=== PATIENT | female | born 1940 | race Caucasian/White ===

== ENCOUNTER 2017-03-06 20:19 | Inpatient (IN) ==
[2017-03-06] MEDS ORDERED: ALBUTEROL/IPRATROPIUM 3 ML NEB RESP TX STA ×2 (20:29→21:10)
[2017-03-06] MEDS ORDERED: methylPREDNISolone SOD SUC 125 MG/2 ML VIAL IV STA (21:09)
[2017-03-06 22:04] LABS: Basophils # 0.1 10*3/uL (0.0-0.2); Basophils % 0.4 % (0.0-0.8); Eosinophils # 0.2 10*3/uL (0.0-0.87); Hematocrit 39.7 VOL% (35.7-47.0); Hemoglobin 13.1 GM/DL (12.0-16.0); Immature Granulocytes % 0.5 %; Immature Granulocytes Absolute 0.08 #; Lymphocytes # 0.8 10*3/uL (1.4-4.0); Lymphocytes % 4.6 % (21.3-54.2); Mean Corpuscular Hemoglobin 28 PG (27-34); Mean Corpuscular Volume 84.5 FL (87-102); Mean Platelet Volume 10.9 FL (9.6-12.0); Monocytes % 6.4 % (1.7-12.7); Neutrophils # 14.1 10*3/uL (1.4-7.4); Neutrophils % 87.1 % (38.7-73.9); Platelet Count 263 T/CUMM (130-400); Red Cell Distribution Width 13.2 % (9.3-17.3); White Blood Count 16.2 T/CUMM (4-12)
[2017-03-06 22:08] LABS: VBG Base Excess 0.1 MEQ/L (0-4); VBG HCO3 24.5 MEQ/L (24-28); VBG Oxygen Saturation 99.7 %; VBG PCO2 39.8 MMHG (41-51); VBG PH 7.401
[2017-03-06 22:25] LABS: Eosinophils 1 % (0-10); Lymphocytes 4 % (20-55); Segmented Neutrophils 89 % (50-85); Total Cells Counted 100
[2017-03-06 22:26] LABS: Platelet Estimate Adequate
[2017-03-06 22:28] LABS: Albumin 3.3 G/DL (3.4-5.0); Osmolality,Calculated 278.7 MOS/KG (273-304); Potassium 3.7 MMOL/L (3.5-5.1); Total Protein 6.8 G/DL (6.4-8.3)
[2017-03-06] MEDS ORDERED: cefTRIAXone 1,000 MG in SODIUM CHLORIDE 0.9% 100 ML IV STA (22:47)
[2017-03-06] MEDS ORDERED: AZITHROMYCIN INJ 500 MG in SODIUM CHLORIDE 0.9% 250 ML IV STA (22:48)
[2017-03-06] MEDS ORDERED: cefTRIAXone 1,000 MG VIAL ONE (23:38)
[2017-03-06] MEDS ORDERED: LEVOFLOXACIN INJ 100 ML IV ONE (23:49)
[2017-03-06] MEDS ORDERED: methylPREDNISolone SOD SUC 125 MG/2 ML VIAL ONE (23:59)
[2017-03-07] MEDS ORDERED: LEVOFLOXACIN INJ 500 MG in PREMIX 1 EACH IV STA (00:14)
[2017-03-07] MEDS ORDERED: DEXTROSE 50% 25 GM/50 ML VIAL IV PRN (00:15)
[2017-03-07] MEDS ORDERED: ACETAMINOPHEN 325 MG TABLET PO PRN (00:15)
[2017-03-07] MEDS ORDERED: ALBUTEROL 2.5 MG/3 ML NEB RESP TX PRN (00:15)
[2017-03-07] MEDS ORDERED: GLUCAGON 1 MG VIAL IM PRN (00:15)
[2017-03-07] MEDS: ALBUTEROL/IPRATROPIUM 3 ML NEB RESP TX SCH ×4 (01:25→20:07)
[2017-03-07] MEDS: SERTRALINE 25 MG TABLET PO SCH ×2 (02:02→20:39)
[2017-03-07] MEDS: ATORVASTATIN 40 MG TABLET PO SCH ×2 (02:02→20:39)
[2017-03-07] MEDS: DONEPEZIL 10 MG TABLET PO SCH ×2 (02:02→20:39)
[2017-03-07] MEDS: MIRTAZAPINE 15 MG TABLET PO SCH ×2 (02:03→20:39)
[2017-03-07 06:55] LABS: Basophils % 0.2 % (0.0-0.8); Eosinophils % 0.1 % (0.00-10.9); Hematocrit 37.6 VOL% (35.7-47.0); Hemoglobin 12.4 GM/DL (12.0-16.0); Immature Granulocytes % 0.5 %; Immature Granulocytes Absolute 0.06 #; Lymphocytes # 0.3 10*3/uL (1.4-4.0); Lymphocytes % 2.1 % (21.3-54.2); Mean Corpuscular Hemoglobin 28 PG (27-34); Mean Corpuscular Volume 84.1 FL (87-102); Mean Platelet Volume 12.2 FL (9.6-12.0); Monocytes # 0.1 10*3/uL (0.11-0.8); Monocytes % 1.1 % (1.7-12.7); Neutrophils # 12.3 10*3/uL (1.4-7.4); Platelet Count 170 T/CUMM (130-400); Red Blood Count 4.47 MC/CUMM (3.8-5.5); Red Cell Distribution Width 13.1 % (9.3-17.3); White Blood Count 12.8 T/CUMM (4-12)
[2017-03-07 07:11] LABS: Osmolality,Calculated 285.5 MOS/KG (273-304); Potassium 3.9 MMOL/L (3.5-5.1)
[2017-03-07 07:25] LABS: Band Neutrophils 1 % (0-10); Giant Platelets Few; Hypochromasia Slight; Lymphocytes 2 % (20-55); Ovalocytes Slight; Platelet Estimate Normal; Segmented Neutrophils 97 % (50-85); Total Cells Counted 100
[2017-03-07] MEDS: predniSONE 20 MG TABLET PO SCH (08:50)
[2017-03-07] MEDS: FERROUS SULFATE 325 MG TABLET PO SCH (08:50)
[2017-03-07] MEDS: LOSARTAN 50 MG TABLET PO SCH (08:50)
[2017-03-07] MEDS: METOPROLOL TARTRATE 25 MG TABLET PO SCH ×2 (08:50→20:41)
[2017-03-07] MEDS: INSULIN REGULAR 100 UNIT/ML SUBCUT SCH ×4 (08:50→20:39)
[2017-03-07] MEDS: hydroCHLOROthiazide 12.5 MG CAPSULE PO SCH (08:50)
[2017-03-07] MEDS: PANTOPRAZOLE 40 MG TABLET PO SCH (08:51)
[2017-03-07] MEDS: ENOXAPARIN 40 MG/0.4 ML SYRINGE SUBCUT SCH (08:51)
[2017-03-08] MEDS: ALBUTEROL/IPRATROPIUM 3 ML NEB RESP TX SCH ×5 (00:32→23:59)
[2017-03-08] MEDS: LEVOFLOXACIN INJ 500 MG in PREMIX 1 EACH IV SCH (02:16)
[2017-03-08] MEDS: ENOXAPARIN 40 MG/0.4 ML SYRINGE SUBCUT SCH ×2 (09:15→09:17)
[2017-03-08] MEDS: INSULIN REGULAR 100 UNIT/ML SUBCUT SCH ×4 (09:16→21:22)
[2017-03-08] MEDS: PANTOPRAZOLE 40 MG TABLET PO SCH (09:16)
[2017-03-08] MEDS: FERROUS SULFATE 325 MG TABLET PO SCH (09:16)
[2017-03-08] MEDS: LOSARTAN 50 MG TABLET PO SCH (09:16)
[2017-03-08] MEDS: METOPROLOL TARTRATE 25 MG TABLET PO SCH ×2 (09:16→21:22)
[2017-03-08] MEDS: predniSONE 20 MG TABLET PO SCH (09:16)
[2017-03-08] MEDS: hydroCHLOROthiazide 12.5 MG CAPSULE PO SCH (09:16)
[2017-03-08 17:29] LABS: Free T4 (Free Thyroxine) 1.62 NG/DL (0.76-1.46); Thyroid Stimulating Hormone 0.348 uIU/ml (0.358-3.74)
[2017-03-08] MEDS ORDERED: INSULIN GLARGINE 100 UNIT/ML SUBCUT SCH (21:00)
[2017-03-08] MEDS: DONEPEZIL 10 MG TABLET PO SCH (21:21)
[2017-03-08] MEDS: ATORVASTATIN 40 MG TABLET PO SCH (21:22)
[2017-03-08] MEDS: MIRTAZAPINE 15 MG TABLET PO SCH (21:22)
[2017-03-08] MEDS: SERTRALINE 25 MG TABLET PO SCH (21:22)
[2017-03-09 01:24] LABS: Apearance,Urine CLEAR (Clear); Bilirubin,Urine Negative (Negative); Blood, Urine Negative (Negative); Glucose,Urine (UA) Negative (Negative); Ketones,Urine Negative (Negative); Mucus,Urine Occasional /LPF (Occasional); Nitrite,Urine Negative (Negative); Protein,Urine Negative; RBC,Urine <1 /HPF (0-4); Urine Color Yellow (Yellow); Urine Specific Gravity 1.011 (1.001-1.035); Urine Urobilinogen < 2.0 EU/DL (0.2-1.0); WBC,Urine 1 /HPF (0-6)
[2017-03-09] MEDS: LEVOFLOXACIN INJ 500 MG in PREMIX 1 EACH IV SCH (02:05)
[2017-03-09 06:23] LABS: Basophils % 0.1 % (0.0-0.8); Eosinophils # 0.1 10*3/uL (0.0-0.87); Eosinophils % 0.7 % (0.00-10.9); Hematocrit 33.5 VOL% (35.7-47.0); Immature Granulocytes % 0.4 %; Immature Granulocytes Absolute 0.04 #; Lymphocytes % 10.8 % (21.3-54.2); Mean Corpuscular HGB Conc 32.8 GM/DL (32-36); Mean Corpuscular Hemoglobin 28 PG (27-34); Mean Corpuscular Volume 83.8 FL (87-102); Mean Platelet Volume 11.1 FL (9.6-12.0); Monocytes # 0.5 10*3/uL (0.11-0.8); Monocytes % 5.8 % (1.7-12.7); Neutrophils # 7.7 10*3/uL (1.4-7.4); Neutrophils % 82.2 % (38.7-73.9); Platelet Count 289 T/CUMM (130-400); Red Cell Distribution Width 13.1 % (9.3-17.3); White Blood Count 9.4 T/CUMM (4-12)
[2017-03-09 06:58] LABS: Calcium 8.2 MG/DL (8.5-10.1); Magnesium 2.5 MG/DL (1.8-2.4); Osmolality,Calculated 288.3 MOS/KG (273-304); Potassium 3.5 MMOL/L (3.5-5.1); Risk Ratio 3.46; VLDL CHOLESTEROL 22.6 MG/DL
[2017-03-09] MEDS: ALBUTEROL/IPRATROPIUM 3 ML NEB RESP TX SCH (07:47)
[2017-03-09 08:29] VITALS: BP 127/55
[2017-03-09] MEDS: INSULIN REGULAR 100 UNIT/ML SUBCUT SCH (09:09)
[2017-03-09] MEDS: PANTOPRAZOLE 40 MG TABLET PO SCH (09:09)
[2017-03-09] MEDS: METOPROLOL TARTRATE 25 MG TABLET PO SCH (09:10)
[2017-03-09] MEDS: FERROUS SULFATE 325 MG TABLET PO SCH (09:10)
[2017-03-09] MEDS: predniSONE 20 MG TABLET PO SCH (09:10)
[2017-03-09] MEDS: LOSARTAN 50 MG TABLET PO SCH (09:10)
[2017-03-09] MEDS: ENOXAPARIN 40 MG/0.4 ML SYRINGE SUBCUT SCH (09:10)
[2017-03-09] MEDS: hydroCHLOROthiazide 12.5 MG CAPSULE PO SCH (09:10)
== END 2017-03-09 11:31 | disposition home or self-care (01) | DRG 190 ==
LOC: N.ED 20:19 → N.EDINP 03-07 00:17 → N.5E 03-07 00:52
PROVIDERS: ADMIT Internal Medicine; ATTEND Internal Medicine

== ENCOUNTER 2017-05-16 18:37 | Inpatient (IN) ==
[2017-05-16] MEDS ORDERED: methylPREDNISolone SOD SUC 125 MG/2 ML VIAL IV STA (19:17)
[2017-05-16] MEDS ORDERED: ALBUTEROL/IPRATROPIUM 3 ML NEB RESP TX STA (19:17)
[2017-05-16] MEDS ORDERED: AZITHROMYCIN INJ 500 MG in SODIUM CHLORIDE 0.9% 250 ML IV STA (19:17)
[2017-05-16] MEDS ORDERED: cefTRIAXone 1,000 MG in SODIUM CHLORIDE 0.9% 100 ML IV STA (19:17)
[2017-05-16 19:22] LABS: Basophils # 0.1 10*3/uL (0.0-0.2); Basophils % 0.5 % (0.0-0.8); Eosinophils # 0.1 10*3/uL (0.0-0.87); Eosinophils % 0.3 % (0.00-10.9); Hematocrit 39.4 VOL% (35.7-47.0); Hemoglobin 12.4 GM/DL (12.0-16.0); Immature Granulocytes % 0.6 %; Immature Granulocytes Absolute 0.09 #; Lymphocytes # 1.1 10*3/uL (1.4-4.0); Lymphocytes % 7.3 % (21.3-54.2); Mean Corpuscular HGB Conc 31.5 GM/DL (32-36); Mean Corpuscular Hemoglobin 26 PG (27-34); Mean Corpuscular Volume 81.4 FL (87-102); Mean Platelet Volume 11.6 FL (9.6-12.0); Monocytes # 0.7 10*3/uL (0.11-0.8); Neutrophils # 12.3 10*3/uL (1.4-7.4); Neutrophils % 86.3 % (38.7-73.9); Platelet Count 341 T/CUMM (130-400); Red Blood Count 4.84 MC/CUMM (3.8-5.5); Red Cell Distribution Width 13.8 % (9.3-17.3); White Blood Count 14.3 T/CUMM (4-12)
[2017-05-16] MEDS ORDERED: cefTRIAXone 1,000 MG VIAL ONE (19:33)
[2017-05-16] MEDS ORDERED: methylPREDNISolone SOD SUC 125 MG/2 ML VIAL ONE (19:33)
[2017-05-16] MEDS ORDERED: AZITHROMYCIN 500 MG VIAL IV ONE (19:33)
[2017-05-16 19:53] LABS: Alanine Aminotransferase 17 U/L (13-56); Albumin 3.4 G/DL (3.4-5.0); Alkaline Phosphatase 114 U/L (45-117); Aspartate Amino Transferase 21 U/L (0-37); Blood Urea Nitrogen 13 MG/DL (7-18); Glucose 134 MG/DL (74-106); Osmolality,Calculated 282.3 MOS/KG (273-304); Potassium 3.3 MMOL/L (3.5-5.1); Sodium 141 MMOL/L (136-145); Total Protein 6.3 G/DL (6.4-8.3); Troponin I Only < 0.015 NG/ML (0.00-0.045)
[2017-05-16] MEDS ORDERED: ONDANSETRON 4 MG/2 ML VIAL IV PRN (20:50)
[2017-05-16] MEDS ORDERED: ACETAMINOPHEN 325 MG TABLET PO PRN (20:50)
[2017-05-16] MEDS ORDERED: GLUCAGON 1 MG VIAL IM PRN (20:50)
[2017-05-16] MEDS ORDERED: DEXTROSE 50% 25 GM/50 ML VIAL IV PRN (20:50)
[2017-05-16] MEDS: SODIUM CHLORIDE 0.45% 1,000 ML IV SCH (22:56)
[2017-05-16] MEDS: metFORMIN 500 MG TABLET PO SCH (22:56)
[2017-05-16] MEDS: ENOXAPARIN 40 MG/0.4 ML SYRINGE SUBCUT SCH (22:57)
[2017-05-16] MEDS: ATORVASTATIN 40 MG TABLET PO SCH (22:57)
[2017-05-16] MEDS: METOPROLOL TARTRATE 25 MG TABLET PO SCH (22:57)
[2017-05-16] MEDS: INSULIN LISPRO 100 UNIT/ML SUBCUT SCH (22:57)
[2017-05-16] MEDS: DONEPEZIL 10 MG TABLET PO SCH (22:57)
[2017-05-17 00:02] LABS: Apearance,Urine Slightly Hazy (Clear); Bilirubin,Urine Negative (Negative); Blood, Urine Small mg/dL (Negative); Glucose,Urine (UA) Negative (Negative); Ketones,Urine 5 mg/dL (Negative); Mucus,Urine Many /LPF (Occasional); Nitrite,Urine Negative (Negative); Protein,Urine 100 MG/DL; RBC,Urine 28 /HPF (0-4); Squamous Epithelial Cell,Urine Occasional /HPF (0-10); Urine Color Amber (Yellow); Urine Specific Gravity 1.024 (1.001-1.035); Urine Urobilinogen < 2.0 EU/DL (0.2-1.0); WBC,Urine 14 /HPF (0-6)
[2017-05-17] MEDS: ALBUTEROL/IPRATROPIUM 3 ML NEB RESP TX SCH ×6 (00:07→20:46)
[2017-05-17] MEDS: methylPREDNISolone SOD SUC 40 MG/1 ML VIAL IV SCH ×3 (02:56→17:55)
[2017-05-17 05:43] LABS: Basophils % 0.2 % (0.0-0.8); Hematocrit 34.5 VOL% (35.7-47.0); Hemoglobin 11.3 GM/DL (12.0-16.0); Immature Granulocytes % 0.6 %; Immature Granulocytes Absolute 0.07 #; Lymphocytes # 0.4 10*3/uL (1.4-4.0); Lymphocytes % 3.5 % (21.3-54.2); Mean Corpuscular HGB Conc 32.8 GM/DL (32-36); Mean Corpuscular Hemoglobin 26 PG (27-34); Mean Corpuscular Volume 80.4 FL (87-102); Monocytes % 0.3 % (1.7-12.7); Neutrophils # 11.9 10*3/uL (1.4-7.4); Neutrophils % 95.4 % (38.7-73.9); Platelet Count 294 T/CUMM (130-400); Red Blood Count 4.29 MC/CUMM (3.8-5.5); White Blood Count 12.5 T/CUMM (4-12)
[2017-05-17 06:17] LABS: Calcium 8.8 MG/DL (8.5-10.1); Osmolality,Calculated 284.3 MOS/KG (273-304); Potassium 3.3 MMOL/L (3.5-5.1)
[2017-05-17 06:21] LABS: Band Neutrophils 1 % (0-10); Lymphocytes 2 % (20-55); Segmented Neutrophils 96 % (50-85); Total Cells Counted 100
[2017-05-17 06:22] LABS: Hypochromasia 1+; Microcytosis 1+; Ovalocytes Slight; Platelet Estimate Normal
[2017-05-17] MEDS ORDERED: MAGNESIUM SULF RIDER 2 GM in PREMIX 1 EACH IV PRN (09:10)
[2017-05-17] MEDS ORDERED: MAGNESIUM SULF RIDER 4 GM in PREMIX 1 EACH IV PRN (09:10)
[2017-05-17] MEDS: INSULIN LISPRO 100 UNIT/ML SUBCUT SCH ×3 (09:11→16:35)
[2017-05-17] MEDS: metFORMIN 500 MG TABLET PO SCH ×2 (09:11→17:51)
[2017-05-17] MEDS: SODIUM CHLORIDE 0.45% 1,000 ML IV SCH (10:25)
[2017-05-17] MEDS: PANTOPRAZOLE 40 MG TABLET PO SCH (10:26)
[2017-05-17] MEDS: METOPROLOL TARTRATE 25 MG TABLET PO SCH ×2 (10:26→20:33)
[2017-05-17] MEDS: POTASSIUM CHLORIDE 20 MEQ TABLET PO PRN ×3 (15:50→20:33)
[2017-05-17] MEDS: LOSARTAN 50 MG TABLET PO SCH (17:51)
[2017-05-17] MEDS: AZITHROMYCIN INJ 500 MG in SODIUM CHLORIDE 0.9% 250 ML IV SCH (20:30)
[2017-05-17] MEDS: DONEPEZIL 10 MG TABLET PO SCH (20:33)
[2017-05-17] MEDS: ATORVASTATIN 40 MG TABLET PO SCH (20:33)
[2017-05-17] MEDS: ENOXAPARIN 40 MG/0.4 ML SYRINGE SUBCUT SCH (20:36)
[2017-05-17] MEDS: cefTRIAXone 1,000 MG in SYRINGE 1 EACH IV SCH (21:24)
[2017-05-18] MEDS: ALBUTEROL/IPRATROPIUM 3 ML NEB RESP TX SCH ×7 (00:11→23:18)
[2017-05-18] MEDS: methylPREDNISolone SOD SUC 40 MG/1 ML VIAL IV SCH ×2 (00:22→09:04)
[2017-05-18 06:29] LABS: Basophils % 0.1 % (0.0-0.8); Hematocrit 34.2 VOL% (35.7-47.0); Hemoglobin 10.6 GM/DL (12.0-16.0); Immature Granulocytes % 0.7 %; Immature Granulocytes Absolute 0.11 #; Lymphocytes # 0.4 10*3/uL (1.4-4.0); Lymphocytes % 2.9 % (21.3-54.2); Mean Corpuscular Hemoglobin 26 PG (27-34); Mean Corpuscular Volume 83.4 FL (87-102); Mean Platelet Volume 11.9 FL (9.6-12.0); Monocytes # 0.3 10*3/uL (0.11-0.8); Monocytes % 1.8 % (1.7-12.7); Neutrophils # 14.2 10*3/uL (1.4-7.4); Neutrophils % 94.5 % (38.7-73.9); Platelet Count 294 T/CUMM (130-400); Red Cell Distribution Width 14.1 % (9.3-17.3); White Blood Count 15.1 T/CUMM (4-12)
[2017-05-18] MEDS: INSULIN LISPRO 100 UNIT/ML SUBCUT SCH ×5 (06:50→22:28)
[2017-05-18 07:00] LABS: Calcium 8.3 MG/DL (8.5-10.1); Osmolality,Calculated 288.1 MOS/KG (273-304); Potassium 3.5 MMOL/L (3.5-5.1)
[2017-05-18 07:01] LABS: Band Neutrophils 1 % (0-10); Hypochromasia 1+; Lymphocytes 2 % (20-55); Platelet Estimate Adequate; Segmented Neutrophils 95 % (50-85); Total Cells Counted 100
[2017-05-18] MEDS: LOSARTAN 50 MG TABLET PO SCH (08:59)
[2017-05-18] MEDS: metFORMIN 500 MG TABLET PO SCH ×2 (08:59→17:24)
[2017-05-18] MEDS: METOPROLOL TARTRATE 25 MG TABLET PO SCH ×2 (08:59→22:27)
[2017-05-18] MEDS: PANTOPRAZOLE 40 MG TABLET PO SCH (09:00)
[2017-05-18] MEDS: cefTRIAXone 1,000 MG in SYRINGE 1 EACH IV SCH (21:55)
[2017-05-18] MEDS: AZITHROMYCIN INJ 500 MG in SODIUM CHLORIDE 0.9% 250 ML IV SCH (22:23)
[2017-05-18] MEDS: ENOXAPARIN 40 MG/0.4 ML SYRINGE SUBCUT SCH (22:25)
[2017-05-18] MEDS: DONEPEZIL 10 MG TABLET PO SCH (22:27)
[2017-05-18] MEDS: ATORVASTATIN 40 MG TABLET PO SCH (22:27)
[2017-05-19] MEDS: ALBUTEROL/IPRATROPIUM 3 ML NEB RESP TX SCH ×5 (02:42→19:21)
[2017-05-19 06:42] LABS: Basophils % 0.1 % (0.0-0.8); Hematocrit 34.3 VOL% (35.7-47.0); Hemoglobin 10.9 GM/DL (12.0-16.0); Immature Granulocytes % 0.7 %; Immature Granulocytes Absolute 0.09 #; Lymphocytes # 0.9 10*3/uL (1.4-4.0); Lymphocytes % 6.2 % (21.3-54.2); Mean Corpuscular HGB Conc 31.8 GM/DL (32-36); Mean Corpuscular Hemoglobin 26 PG (27-34); Mean Corpuscular Volume 82.1 FL (87-102); Mean Platelet Volume 11.8 FL (9.6-12.0); Monocytes # 0.6 10*3/uL (0.11-0.8); Monocytes % 4.7 % (1.7-12.7); Neutrophils % 88.3 % (38.7-73.9); Platelet Count 310 T/CUMM (130-400); Red Blood Count 4.18 MC/CUMM (3.8-5.5); Red Cell Distribution Width 14.4 % (9.3-17.3); White Blood Count 13.6 T/CUMM (4-12)
[2017-05-19 07:08] LABS: Calcium 8.3 MG/DL (8.5-10.1); Osmolality,Calculated 289.8 MOS/KG (273-304); Potassium 3.5 MMOL/L (3.5-5.1)
[2017-05-19] MEDS: LOSARTAN 50 MG TABLET PO SCH (08:54)
[2017-05-19] MEDS: PANTOPRAZOLE 40 MG TABLET PO SCH (08:54)
[2017-05-19] MEDS: predniSONE 20 MG TABLET PO SCH (08:55)
[2017-05-19] MEDS: metFORMIN 500 MG TABLET PO SCH ×2 (08:55→17:53)
[2017-05-19] MEDS: METOPROLOL TARTRATE 25 MG TABLET PO SCH ×2 (08:55→21:32)
[2017-05-19] MEDS: INSULIN LISPRO 100 UNIT/ML SUBCUT SCH ×4 (08:58→21:45)
[2017-05-19] MEDS ORDERED: AZITHROMYCIN 250 MG TABLET PO SCH (21:00)
[2017-05-19] MEDS: cefTRIAXone 1,000 MG in SYRINGE 1 EACH IV SCH (21:28)
[2017-05-19] MEDS: DONEPEZIL 10 MG TABLET PO SCH (21:32)
[2017-05-19] MEDS: ATORVASTATIN 40 MG TABLET PO SCH (21:32)
[2017-05-19] MEDS: ENOXAPARIN 40 MG/0.4 ML SYRINGE SUBCUT SCH (21:33)
[2017-05-20] MEDS: ALBUTEROL/IPRATROPIUM 3 ML NEB RESP TX SCH ×3 (00:23→07:00)
[2017-05-20 05:21] LABS: Basophils % 0.1 % (0.0-0.8); Eosinophils % 0.1 % (0.00-10.9); Hematocrit 30.9 VOL% (35.7-47.0); Immature Granulocytes % 0.9 %; Immature Granulocytes Absolute 0.07 #; Lymphocytes # 0.9 10*3/uL (1.4-4.0); Lymphocytes % 11.3 % (21.3-54.2); Mean Corpuscular HGB Conc 32.4 GM/DL (32-36); Mean Corpuscular Hemoglobin 26 PG (27-34); Mean Corpuscular Volume 81.3 FL (87-102); Mean Platelet Volume 11.8 FL (9.6-12.0); Monocytes # 0.5 10*3/uL (0.11-0.8); Neutrophils # 6.2 10*3/uL (1.4-7.4); Neutrophils % 80.6 % (38.7-73.9); Platelet Count 251 T/CUMM (130-400); Red Cell Distribution Width 14.2 % (9.3-17.3); White Blood Count 7.7 T/CUMM (4-12)
[2017-05-20 05:57] LABS: Calcium 8.3 MG/DL (8.5-10.1); Osmolality,Calculated 288.8 MOS/KG (273-304); Potassium 3.3 MMOL/L (3.5-5.1)
[2017-05-20] MEDS: metFORMIN 500 MG TABLET PO SCH (08:21)
[2017-05-20] MEDS: PANTOPRAZOLE 40 MG TABLET PO SCH (08:21)
[2017-05-20] MEDS: predniSONE 20 MG TABLET PO SCH (08:21)
[2017-05-20] MEDS: POTASSIUM CHLORIDE 20 MEQ TABLET PO PRN ×2 (08:21→10:08)
[2017-05-20] MEDS: LOSARTAN 50 MG TABLET PO SCH (08:21)
[2017-05-20] MEDS: METOPROLOL TARTRATE 25 MG TABLET PO SCH (08:21)
[2017-05-20] MEDS: INSULIN LISPRO 100 UNIT/ML SUBCUT SCH ×2 (08:34→11:26)
[2017-05-20 11:46] VITALS: BP 161/78
== END 2017-05-20 13:23 | disposition home or self-care (01) | DRG 192 ==
LOC: EDUNIT# → EDBD → N.ED 18:37 → SUATTDRO 20:48 → N.EDINP 20:48 → N.2E 21:21
PROVIDERS: ADMIT Internal Medicine; ATTEND Internal Medicine

== ENCOUNTER 2018-10-22 21:23 | Inpatient (IN) ==
[2018-10-22 22:12] LABS: Basophils # 0.1 10*3/uL (0.0-0.2); Basophils % 0.6 % (0.0-0.8); Eosinophils # 0.3 10*3/uL (0.0-0.87); Eosinophils % 1.5 % (0.00-10.9); Hemoglobin 11.3 GM/DL (12.0-16.0); Immature Granulocytes % 0.5 %; Immature Granulocytes Absolute 0.09 #; Lymphocytes # 0.7 10*3/uL (1.4-4.0); Lymphocytes % 3.9 % (21.3-54.2); Mean Corpuscular HGB Conc 30.5 GM/DL (32-36); Mean Corpuscular Volume 86.2 FL (87-102); Mean Platelet Volume 11.3 FL (9.6-12.0); Monocytes % 4.3 % (1.7-12.7); Neutrophils % 89.2 % (38.7-73.9); Platelet Count 264 T/CUMM (130-400); Red Blood Count 4.29 MC/CUMM (3.8-5.5); Red Cell Distribution Width 13.2 % (9.3-17.3); White Blood Count 16.9 T/CUMM (4-12)
[2018-10-22 22:24] LABS: Alanine Aminotransferase 24 U/L (13-56); Albumin 3.7 G/DL (3.4-5.0); Alkaline Phosphatase 108 U/L (45-117); Aspartate Amino Transferase 23 U/L (0-37); Bilirubin,Total < 0.39 MG/DL (0.2-1.0); Blood Urea Nitrogen 15 MG/DL (7-18); Calcium 9.6 MG/DL (8.5-10.1); Glucose 182 MG/DL (74-106); Osmolality,Calculated 293.7 MOS/KG (273-304); Total Protein 6.7 G/DL (6.4-8.3)
[2018-10-22] MEDS ORDERED: ALBUTEROL/IPRATROPIUM 3 ML NEB RESP TX STA (22:24)
[2018-10-22] MEDS ORDERED: methylPREDNISolone SOD SUC 125 MG/2 ML VIAL IV STA (22:24)
[2018-10-22] MEDS ORDERED: ASPIRIN 325 MG TABLET PO STA (22:24)
[2018-10-22] MEDS ORDERED: ALBUTEROL 2.5 MG/3 ML NEB RESP TX STA (22:24)
[2018-10-22] MEDS ORDERED: LEVOFLOXACIN INJ 750 MG in PREMIX 1 EACH IV STA (22:39)
[2018-10-22 22:40] LABS: PT Patient Result 10.4 SECS
[2018-10-22 22:44] LABS: Anisocytosis 1+; Band Neutrophils 2 % (0-10); Lymphocytes 3 % (20-55); Platelet Estimate Adequate; Segmented Neutrophils 95 % (50-85); Total Cells Counted 100
[2018-10-22] MEDS ORDERED: guaiFENesin/DM ER 600-30 MG TABLET PO PRN (23:36)
[2018-10-22] MEDS ORDERED: NICOTINE 21 MG/24 HR PATCH TRANSDERM PRN (23:36)
[2018-10-22] MEDS ORDERED: diphenhydrAMINE CAP 25 MG CAPSULE PO PRN (23:36)
[2018-10-22] MEDS ORDERED: ACETAMINOPHEN 325 MG TABLET PO PRN (23:36)
[2018-10-22] MEDS ORDERED: BISACODYL 5 MG TABLET PO PRN (23:36)
[2018-10-22] MEDS ORDERED: ONDANSETRON 4 MG/2 ML VIAL IV PRN (23:36)
[2018-10-22] MEDS ORDERED: MORPHINE 4 MG/1 ML VIAL IV PRN (23:36)
[2018-10-23] MEDS: ALBUTEROL/IPRATROPIUM 3 ML NEB RESP TX SCH ×4 (00:10→19:01)
[2018-10-23] MEDS ORDERED: PNEUMOCOCCAL VACCINE (13 VALENT) 0.5 ML SYRINGE IM ONE (01:03)
[2018-10-23 01:15] LABS: Basophils # 0.1 10*3/uL (0.0-0.2); Basophils % 0.4 % (0.0-0.8); Eosinophils % 0.1 % (0.00-10.9); Hematocrit 32.8 VOL% (35.7-47.0); Hemoglobin 10.2 GM/DL (12.0-16.0); Immature Granulocytes % 1.1 %; Immature Granulocytes Absolute 0.17 #; Lymphocytes # 0.5 10*3/uL (1.4-4.0); Lymphocytes % 2.8 % (21.3-54.2); Mean Corpuscular HGB Conc 31.1 GM/DL (32-36); Mean Corpuscular Volume 86.5 FL (87-102); Mean Platelet Volume 10.8 FL (9.6-12.0); Monocytes % 2.8 % (1.7-12.7); Neutrophils % 92.8 % (38.7-73.9); Platelet Count 224 T/CUMM (130-400); Red Blood Count 3.79 MC/CUMM (3.8-5.5); Red Cell Distribution Width 13.3 % (9.3-17.3); White Blood Count 15.9 T/CUMM (4-12)
[2018-10-23 01:35] LABS: Albumin 3.3 G/DL (3.4-5.0); Bilirubin,Total 0.5 MG/DL (0.2-1.0); Calcium 8.9 MG/DL (8.5-10.1); Total Protein 6.4 G/DL (6.4-8.3)
[2018-10-23 02:23] LABS: Anisocytosis 1+; Lymphocytes 3 % (20-55); Platelet Estimate Adequate; Segmented Neutrophils 92 % (50-85); Total Cells Counted 100
[2018-10-23] MEDS: PANTOPRAZOLE 40 MG TABLET PO SCH (08:36)
[2018-10-23] MEDS: methylPREDNISolone SOD SUC 40 MG/1 ML VIAL IV SCH ×3 (08:36→23:35)
[2018-10-23] MEDS ORDERED: DEXTROSE 50% 25 GM/50 ML VIAL IV PRN (13:35)
[2018-10-23] MEDS ORDERED: GLUCAGON 1 MG VIAL IM PRN (13:35)
[2018-10-23] MEDS ORDERED: MAGNESIUM HYDROXIDE SUSP 30 ML UDCUP PO PRN (14:20)
[2018-10-23] MEDS ORDERED: ALUMINUM/MAGNES/SIMETH MAX STR 30 ML UDCUP PO PRN (14:20)
[2018-10-23] MEDS: INSULIN LISPRO 100 UNIT/ML SUBCUT SCH ×2 (16:37→20:41)
[2018-10-23] MEDS: SODIUM CHLORIDE 0.9% 1,000 ML IV SCH (18:43)
[2018-10-23] MEDS: DONEPEZIL 10 MG TABLET PO SCH (20:39)
[2018-10-23] MEDS: ATORVASTATIN 40 MG TABLET PO SCH (20:40)
[2018-10-23] MEDS: MEMANTINE 10 MG TABLET PO SCH (20:41)
[2018-10-23 23:56] LABS: Apearance,Urine CLEAR (Clear); Bilirubin,Urine Negative (Negative); Blood, Urine Negative (Negative); Glucose,Urine (UA) 50 mg/dL (Negative); Hyaline Casts,Urine 3 /LPF (0-3); Ketones,Urine 5 mg/dL (Negative); Mucus,Urine Occasional /LPF (Occasional); Nitrite,Urine Negative (Negative); Protein,Urine Negative; RBC,Urine 5 /HPF (0-4); Squamous Epithelial Cell,Urine Occasional /HPF (0-10); Urine Color Yellow (Yellow); Urine Urobilinogen < 2.0 EU/DL (0.2-1.0); WBC,Urine 53 /HPF (0-6)
[2018-10-24] MEDS: ALBUTEROL/IPRATROPIUM 3 ML NEB RESP TX SCH ×4 (00:26→19:27)
[2018-10-24 05:09] LABS: Basophils % 0.1 % (0.0-0.8); Hematocrit 27.2 VOL% (35.7-47.0); Hemoglobin 8.8 GM/DL (12.0-16.0); Immature Granulocytes % 0.8 %; Immature Granulocytes Absolute 0.12 #; Lymphocytes # 0.3 10*3/uL (1.4-4.0); Lymphocytes % 2.2 % (21.3-54.2); Mean Corpuscular HGB Conc 32.4 GM/DL (32-36); Mean Corpuscular Volume 84.2 FL (87-102); Mean Platelet Volume 11.2 FL (9.6-12.0); Monocytes % 2.1 % (1.7-12.7); Neutrophils % 94.8 % (38.7-73.9); Platelet Count 201 T/CUMM (130-400); Red Blood Count 3.23 MC/CUMM (3.8-5.5); Red Cell Distribution Width 13.6 % (9.3-17.3); White Blood Count 15.3 T/CUMM (4-12)
[2018-10-24 05:34] LABS: Band Neutrophils 1 % (0-10); Hypochromasia 1+; Lymphocytes 1 % (20-55); Ovalocytes Slight; Platelet Estimate Adequate; Segmented Neutrophils 95 % (50-85); Total Cells Counted 100
[2018-10-24 05:39] LABS: Blood Urea Nitrogen 25 MG/DL (7-18); Calcium 8.6 MG/DL (8.5-10.1); Glucose 210 MG/DL (74-106); Osmolality,Calculated 292.1 MOS/KG (273-304)
[2018-10-24] MEDS: INSULIN LISPRO 100 UNIT/ML SUBCUT SCH ×4 (08:34→22:38)
[2018-10-24] MEDS: SODIUM CHLORIDE 0.9% 1,000 ML IV SCH (08:35)
[2018-10-24] MEDS: methylPREDNISolone SOD SUC 40 MG/1 ML VIAL IV SCH (08:35)
[2018-10-24] MEDS: LOSARTAN 50 MG TABLET PO SCH (08:37)
[2018-10-24] MEDS: PANTOPRAZOLE 40 MG TABLET PO SCH (08:38)
[2018-10-24] MEDS: hydroCHLOROthiazide 12.5 MG CAPSULE PO SCH (08:38)
[2018-10-24] MEDS: FERROUS SULFATE 325 MG TABLET PO SCH (08:39)
[2018-10-24] MEDS: MEMANTINE 10 MG TABLET PO SCH ×2 (08:39→22:38)
[2018-10-24] MEDS ORDERED: LEVOFLOXACIN INJ 750 MG in PREMIX 1 EACH IV SCH (21:00)
[2018-10-24] MEDS: DONEPEZIL 10 MG TABLET PO SCH (21:49)
[2018-10-24] MEDS: predniSONE 20 MG TABLET PO SCH (21:49)
[2018-10-24] MEDS: ATORVASTATIN 40 MG TABLET PO SCH (21:50)
[2018-10-25] MEDS: ALBUTEROL/IPRATROPIUM 3 ML NEB RESP TX SCH ×2 (00:02→07:32)
[2018-10-25 02:53] LABS: Basophils % 0.2 % (0.0-0.8); Eosinophils % 0.1 % (0.00-10.9); Hematocrit 29.6 VOL% (35.7-47.0); Hemoglobin 9.1 GM/DL (12.0-16.0); Immature Granulocytes % 1.3 %; Immature Granulocytes Absolute 0.23 #; Lymphocytes # 0.4 10*3/uL (1.4-4.0); Lymphocytes % 2.2 % (21.3-54.2); Mean Corpuscular HGB Conc 30.7 GM/DL (32-36); Mean Corpuscular Volume 86.5 FL (87-102); Mean Platelet Volume 10.9 FL (9.6-12.0); Monocytes % 2.8 % (1.7-12.7); Neutrophils % 93.4 % (38.7-73.9); Platelet Count 215 T/CUMM (130-400); Red Blood Count 3.42 MC/CUMM (3.8-5.5); Red Cell Distribution Width 13.9 % (9.3-17.3); White Blood Count 17.1 T/CUMM (4-12)
[2018-10-25 03:21] LABS: Alanine Aminotransferase 29 U/L (13-56); Albumin 2.9 G/DL (3.4-5.0); Alkaline Phosphatase 82 U/L (45-117); Aspartate Amino Transferase 39 U/L (0-37); Bilirubin,Total < 0.39 MG/DL (0.2-1.0); Blood Urea Nitrogen 25 MG/DL (7-18); Calcium 8.3 MG/DL (8.5-10.1); Glucose 187 MG/DL (74-106); Osmolality,Calculated 291.1 MOS/KG (273-304); Total Protein 5.9 G/DL (6.4-8.3)
[2018-10-25 04:07] LABS: Hypochromasia 1+; Lymphocytes 1 % (20-55); Ovalocytes Slight; Platelet Estimate Adequate; Segmented Neutrophils 97 % (50-85); Total Cells Counted 100
[2018-10-25] MEDS: INSULIN LISPRO 100 UNIT/ML SUBCUT SCH ×2 (08:33→12:37)
[2018-10-25] MEDS: LOSARTAN 50 MG TABLET PO SCH (08:35)
[2018-10-25] MEDS: predniSONE 20 MG TABLET PO SCH (08:35)
[2018-10-25] MEDS: hydroCHLOROthiazide 12.5 MG CAPSULE PO SCH (08:35)
[2018-10-25] MEDS: FERROUS SULFATE 325 MG TABLET PO SCH (08:35)
[2018-10-25] MEDS: PANTOPRAZOLE 40 MG TABLET PO SCH (08:35)
[2018-10-25] MEDS: MEMANTINE 10 MG TABLET PO SCH (09:45)
[2018-10-25 11:23] VITALS: BP 143/82
== END 2018-10-25 12:10 | disposition home or self-care (01) | DRG 191 ==
LOC: N.ED 21:23 → N.EDINP 21:23 → N.2E 10-23 00:33 → SUATTDRO 10-24 09:45
PROVIDERS: ADMIT Internal Medicine; ATTEND Internal Medicine Nephrology

== ENCOUNTER 2021-04-13 09:38 | Inpatient (IN) ==
[2021-04-13 10:36] LABS: Basophils # 0.1 10*3/uL (0.0-0.2); Basophils % 0.6 % (0.0-0.8); Eosinophils # 0.2 10*3/uL (0.0-0.87); Eosinophils % 2.8 % (0.00-10.9); Hematocrit 38.2 VOL% (35.7-47.0); Hemoglobin 12.4 GM/DL (12.0-16.0); Immature Granulocytes % 0.2 %; Immature Granulocytes Absolute 0.02 #; Lymphocytes # 0.9 10*3/uL (1.4-4.0); Lymphocytes % 10.9 % (21.3-54.2); Mean Corpuscular HGB Conc 32.5 GM/DL (32-36); Mean Corpuscular Volume 86.2 FL (87-102); Mean Platelet Volume 11.9 FL (9.6-12.0); Monocytes % 8.1 % (1.7-12.7); Neutrophils % 77.4 % (38.7-73.9); Platelet Count 232 T/CUMM (130-400); Red Blood Count 4.43 MC/CUMM (3.8-5.5); Red Cell Distribution Width 12.3 % (9.3-17.3); White Blood Count 8.4 T/CUMM (4-12)
[2021-04-13 10:38] LABS: Bilirubin,Urine Negative (Negative); Blood, Urine Negative (Negative); Glucose,Urine (UA) Negative (Negative); Ketones,Urine Negative (Negative); Nitrite,Urine Negative (Negative); Protein,Urine 30 MG/DL; RBC,Urine 2 /HPF (0-4); Squamous Epithelial Cell,Urine Occasional /HPF (0-10); Urine Appearance CLEAR (Clear); Urine Color Yellow (Yellow); Urine Specific Gravity 1.013 (1.001-1.035); Urine Urobilinogen < 2.0 EU/DL (<2.0)
[2021-04-13 10:52] LABS: Albumin 3.1 G/DL (3.4-5.0); Bilirubin,Total 0.9 MG/DL (0.20-1.00); Calcium 10.6 MG/DL (8.5-10.1); Osmolality,Calculated 284.3 MOS/KG (273-304); Potassium 3.3 MMOL/L (3.5-5.1)
[2021-04-13] MEDS ORDERED: GLUCAGON 1 MG VIAL IM PRN (11:41)
[2021-04-13] MEDS ORDERED: hydrALAZINE 20 MG/1 ML VIAL IV PRN (11:41)
[2021-04-13] MEDS ORDERED: DEXTROSE 50% 25 GM/50 ML SYRINGE IV PRN (11:41)
[2021-04-13] MEDS ORDERED: ONDANSETRON 4 MG/2 ML VIAL IV PRN (11:41)
[2021-04-13] MEDS ORDERED: POTASSIUM CHLORIDE INJ 40 MEQ in SODIUM CHLORIDE 0.9% 1,000 ML IV SCH (12:00)
[2021-04-13] MEDS ORDERED: LOSARTAN 50 MG TABLET PO ONE (12:09)
[2021-04-13] MEDS ORDERED: ALBUTEROL 2.5 MG/3 ML NEB RESP TX PRN (12:17)
[2021-04-13 12:51] LABS: Risk Ratio 4.8; VLDL Cholesterol 40.4 MG/DL
[2021-04-13] MEDS: SODIUM CHLOR 0.9% KCL 40 MEQ 40 MEQ/1,000 ML BAG IV SCH ×2 (13:04→23:11)
[2021-04-13] MEDS: INSULIN LISPRO 100 UNIT/ML SUBCUT SCH ×2 (17:47→21:48)
[2021-04-13] MEDS: METOPROLOL TARTRATE 25 MG TABLET PO SCH (21:47)
[2021-04-13] MEDS: DOCUSATE SODIUM 100 MG CAPSULE PO SCH (21:48)
[2021-04-13] MEDS: MEMANTINE 10 MG TABLET PO SCH (21:48)
[2021-04-14] MEDS ORDERED: INFLUENZA VIRUS VACCINE 0.5 ML SYRINGE IM ONE (00:44)
[2021-04-14 05:25] LABS: Basophils # 0.1 10*3/uL (0.0-0.2); Basophils % 0.7 % (0.0-0.8); Eosinophils # 0.3 10*3/uL (0.0-0.87); Eosinophils % 4.7 % (0.00-10.9); Hematocrit 38.8 VOL% (35.7-47.0); Immature Granulocytes % 0.3 %; Immature Granulocytes Absolute 0.02 #; Lymphocytes # 0.9 10*3/uL (1.4-4.0); Lymphocytes % 13.3 % (21.3-54.2); Mean Corpuscular HGB Conc 30.9 GM/DL (32-36); Mean Corpuscular Volume 91.5 FL (87-102); Mean Platelet Volume 11.5 FL (9.6-12.0); Monocytes % 8.5 % (1.7-12.7); Neutrophils % 72.5 % (38.7-73.9); Platelet Count 200 T/CUMM (130-400); Red Blood Count 4.24 MC/CUMM (3.8-5.5); Red Cell Distribution Width 12.2 % (9.3-17.3); White Blood Count 7.1 T/CUMM (4-12)
[2021-04-14 05:46] LABS: Calcium 9.5 MG/DL (8.5-10.1); Osmolality,Calculated 281.3 MOS/KG (273-304); Potassium 4.1 MMOL/L (3.5-5.1)
[2021-04-14] MEDS: MEMANTINE 10 MG TABLET PO SCH ×2 (08:32→21:03)
[2021-04-14] MEDS: INSULIN LISPRO 100 UNIT/ML SUBCUT SCH ×4 (08:33→20:57)
[2021-04-14] MEDS: LOSARTAN 50 MG TABLET PO SCH (08:33)
[2021-04-14] MEDS: METOPROLOL TARTRATE 25 MG TABLET PO SCH ×2 (08:33→21:03)
[2021-04-14] MEDS: hydroCHLOROthiazide 12.5 MG CAPSULE PO SCH (08:35)
[2021-04-14] MEDS ORDERED: PANTOPRAZOLE 40 MG TABLET PO SCH (09:00)
[2021-04-14] MEDS: SODIUM CHLOR 0.9% KCL 40 MEQ 40 MEQ/1,000 ML BAG IV SCH ×2 (09:36→21:02)
[2021-04-14] MEDS: PANTOPRAZOLE 40 MG TABLET PO SCH (09:54)
[2021-04-14] MEDS: MULTIVITAMIN (CENTRUM) TABLET PO SCH (09:54)
[2021-04-14] MEDS: FERROUS SULFATE 325 MG TABLET PO SCH (09:54)
[2021-04-14] MEDS: DOCUSATE SODIUM 100 MG CAPSULE PO SCH ×2 (09:54→21:03)
[2021-04-14] MEDS ORDERED: TUBERCULIN SKIN TEST 0.1 ML SYRINGE INTRADERM ONE (15:00)
[2021-04-14] MEDS: ALBUTEROL/IPRATROPIUM 3 ML NEB RESP TX SCH (20:26)
[2021-04-15] MEDS: ALBUTEROL/IPRATROPIUM 3 ML NEB RESP TX SCH ×4 (01:28→20:47)
[2021-04-15 05:26] LABS: Basophils # 0.1 10*3/uL (0.0-0.2); Eosinophils # 0.5 10*3/uL (0.0-0.87); Eosinophils % 5.9 % (0.00-10.9); Hematocrit 36.8 VOL% (35.7-47.0); Hemoglobin 12.1 GM/DL (12.0-16.0); Immature Granulocytes % 0.3 %; Immature Granulocytes Absolute 0.03 #; Lymphocytes # 0.9 10*3/uL (1.4-4.0); Lymphocytes % 10.1 % (21.3-54.2); Mean Corpuscular HGB Conc 32.9 GM/DL (32-36); Mean Platelet Volume 12.2 FL (9.6-12.0); Monocytes % 8.5 % (1.7-12.7); Neutrophils % 74.2 % (38.7-73.9); Platelet Count 234 T/CUMM (130-400); Red Blood Count 4.28 MC/CUMM (3.8-5.5); Red Cell Distribution Width 12.4 % (9.3-17.3); White Blood Count 8.7 T/CUMM (4-12)
[2021-04-15 05:40] LABS: Calcium 9.8 MG/DL (8.5-10.1); Osmolality,Calculated 282.3 MOS/KG (273-304); Potassium 4.3 MMOL/L (3.5-5.1)
[2021-04-15] MEDS ORDERED: LEVOFLOXACIN INJ 500 MG/100 ML PREMIX IV ONE (06:00)
[2021-04-15] MEDS: INSULIN LISPRO 100 UNIT/ML SUBCUT SCH ×4 (08:43→23:47)
[2021-04-15] MEDS: PANTOPRAZOLE 40 MG TABLET PO SCH (08:44)
[2021-04-15] MEDS: MULTIVITAMIN (CENTRUM) TABLET PO SCH (08:44)
[2021-04-15] MEDS: DOCUSATE SODIUM 100 MG CAPSULE PO SCH ×2 (08:44→23:46)
[2021-04-15] MEDS: MEMANTINE 10 MG TABLET PO SCH ×2 (08:44→23:47)
[2021-04-15] MEDS: FERROUS SULFATE 325 MG TABLET PO SCH (08:44)
[2021-04-15] MEDS: LOSARTAN 50 MG TABLET PO SCH (09:32)
[2021-04-15] MEDS: SODIUM CHLOR 0.9% KCL 40 MEQ 40 MEQ/1,000 ML BAG IV SCH (09:32)
[2021-04-15] MEDS: METOPROLOL TARTRATE 25 MG TABLET PO SCH ×2 (09:32→23:47)
[2021-04-15] MEDS: hydroCHLOROthiazide 12.5 MG CAPSULE PO SCH (09:32)
[2021-04-15] MEDS ORDERED: TISSUE ADHESIVE 1 EACH APPLICATOR TOP ONE (11:04)
[2021-04-15] MEDS ORDERED: ROPIVACAINE 0.5% 30 ML VIAL ONE (11:04)
[2021-04-15] MEDS ORDERED: LACTATED RINGERS 1,000 ML IV SCH (11:30)
[2021-04-15] MEDS ORDERED: propofoL 200 MG/20 ML VIAL IV ONE ×2 (11:36→11:37)
[2021-04-15] MEDS ORDERED: LIDOCAINE 2% 5 ML VIAL ONE ×2 (11:36→11:37)
[2021-04-15] MEDS ORDERED: KETAMINE 500 MG/10 ML VIAL ONE (11:52)
[2021-04-15] MEDS ORDERED: HALOPERIDOL 5 MG/ML AMP IM ONE (14:26)
[2021-04-15] MEDS ORDERED: LORazepam 2 MG/1 ML VIAL IV PRN (18:44)
[2021-04-16] MEDS: ALBUTEROL/IPRATROPIUM 3 ML NEB RESP TX SCH ×4 (01:10→21:26)
[2021-04-16 05:46] LABS: Basophils % 0.2 % (0.0-0.8); Hematocrit 41.4 VOL% (35.7-47.0); Hemoglobin 13.5 GM/DL (12.0-16.0); Immature Granulocytes % 0.3 %; Immature Granulocytes Absolute 0.06 #; Lymphocytes # 0.4 10*3/uL (1.4-4.0); Lymphocytes % 2.3 % (21.3-54.2); Mean Corpuscular HGB Conc 32.6 GM/DL (32-36); Mean Corpuscular Volume 86.1 FL (87-102); Mean Platelet Volume 12.8 FL (9.6-12.0); Monocytes % 4.9 % (1.7-12.7); Neutrophils % 92.3 % (38.7-73.9); Platelet Count 296 T/CUMM (130-400); Red Blood Count 4.81 MC/CUMM (3.8-5.5); Red Cell Distribution Width 12.4 % (9.3-17.3); White Blood Count 17.3 T/CUMM (4-12)
[2021-04-16 06:02] LABS: Calcium 10.3 MG/DL (8.5-10.1); Osmolality,Calculated 283.5 MOS/KG (273-304); Potassium 4.6 MMOL/L (3.5-5.1)
[2021-04-16 06:08] LABS: Lymphocytes 1 % (20-55); Platelet Estimate Adequate; Segmented Neutrophils 95 % (50-85); Total Cells Counted 100
[2021-04-16] MEDS: SODIUM CHLOR 0.9% KCL 40 MEQ 40 MEQ/1,000 ML BAG IV SCH ×3 (07:41→11:08)
[2021-04-16] MEDS ORDERED: SODIUM CHLORIDE 0.9% 1,000 ML IV SCH (08:00)
[2021-04-16] MEDS: INSULIN LISPRO 100 UNIT/ML SUBCUT SCH ×3 (08:39→16:12)
[2021-04-16] MEDS: MULTIVITAMIN (CENTRUM) TABLET PO SCH (08:42)
[2021-04-16] MEDS: DOCUSATE SODIUM 100 MG CAPSULE PO SCH ×2 (08:43→22:15)
[2021-04-16] MEDS: LOSARTAN 50 MG TABLET PO SCH (08:43)
[2021-04-16] MEDS: FERROUS SULFATE 325 MG TABLET PO SCH (08:44)
[2021-04-16] MEDS: hydroCHLOROthiazide 12.5 MG CAPSULE PO SCH (08:45)
[2021-04-16] MEDS: MEMANTINE 10 MG TABLET PO SCH ×2 (08:46→22:16)
[2021-04-16] MEDS: METOPROLOL TARTRATE 25 MG TABLET PO SCH ×2 (08:46→22:16)
[2021-04-16] MEDS: PANTOPRAZOLE 40 MG TABLET PO SCH (08:48)
[2021-04-16] MEDS ORDERED: DEXTROSE 10% 250 ML BAG IV PRN (09:00)
[2021-04-16] MEDS ORDERED: NALOXONE 0.4 MG/ML VIAL ONE (10:49)
[2021-04-16] MEDS ORDERED: NALOXONE 0.4 MG/ML VIAL IV ONE (11:00)
[2021-04-16] MEDS ORDERED: SODIUM CHLORIDE 0.9% 500 ML IV ONE (11:25)
[2021-04-16] MEDS ORDERED: SODIUM BICARB INJ 100 MEQ in SODIUM CHLORIDE 0.45% 1,000 ML IV SCH (11:30)
[2021-04-16 12:14] LABS: ABG Base Excess -3.6 MMOL/L (-2.5-2.5); ABG HCO3 21.3 MMOL/L (20-26); ABG Oxygen Saturation 92.5 % (95-100); ABG PCO2 27.5 MM HG (35-48); ABG PH 7.448 (7.35-7.45); ABG PO2 63.9 MM HG (80-95); ABG TCO2 16.7 MMOL/L (23-27); Pt O2 Delivery Device Room Air
[2021-04-16 12:36] LABS: Bilirubin,Urine Negative (Negative); Blood, Urine Large mg/dL (Negative); Glucose,Urine (UA) Negative (Negative); Ketones,Urine 20 mg/dL (Negative); Mucus,Urine Occasional /LPF (Occasional); Nitrite,Urine Negative (Negative); Protein,Urine 100 MG/DL; RBC,Urine 71 /HPF (0-4); Urine Appearance CLEAR (Clear); Urine Color Yellow (Yellow); Urine Specific Gravity 1.009 (1.001-1.035); Urine Urobilinogen < 2.0 EU/DL (<2.0)
[2021-04-16] MEDS: SODIUM BICARB INJ 100 MEQ in STERILE WATER INJ 1,000 ML IV SCH (13:13)
[2021-04-17] MEDS: ALBUTEROL/IPRATROPIUM 3 ML NEB RESP TX SCH ×4 (01:10→21:25)
[2021-04-17] MEDS: INSULIN LISPRO 100 UNIT/ML SUBCUT SCH ×5 (01:39→22:05)
[2021-04-17] MEDS: SODIUM BICARB INJ 100 MEQ in STERILE WATER INJ 1,000 ML IV SCH (02:28)
[2021-04-17 06:07] LABS: Basophils % 0.2 % (0.0-0.8); Eosinophils # 0.1 10*3/uL (0.0-0.87); Eosinophils % 0.5 % (0.00-10.9); Hematocrit 36.4 VOL% (35.7-47.0); Hemoglobin 11.9 GM/DL (12.0-16.0); Immature Granulocytes % 0.5 %; Immature Granulocytes Absolute 0.07 #; Lymphocytes # 0.6 10*3/uL (1.4-4.0); Mean Corpuscular HGB Conc 32.7 GM/DL (32-36); Mean Corpuscular Volume 86.3 FL (87-102); Neutrophils % 87.8 % (38.7-73.9); Platelet Count 217 T/CUMM (130-400); Red Blood Count 4.22 MC/CUMM (3.8-5.5); Red Cell Distribution Width 12.7 % (9.3-17.3); White Blood Count 14.6 T/CUMM (4-12)
[2021-04-17 06:29] LABS: Calcium 9.8 MG/DL (8.5-10.1); Osmolality,Calculated 283.7 MOS/KG (273-304); Potassium 3.9 MMOL/L (3.5-5.1)
[2021-04-17 06:31] LABS: Band Neutrophils 2 % (0-10); Eosinophils 2 % (0-10); Lymphocytes 4 % (20-55); Platelet Estimate Normal; Segmented Neutrophils 89 % (50-85); Total Cells Counted 100
[2021-04-17] MEDS ORDERED: BISACODYL 10 MG SUPP RECTAL ONE (08:30)
[2021-04-17] MEDS: SODIUM CHLORIDE 0.9% 1,000 ML IV SCH ×2 (09:33→22:13)
[2021-04-17] MEDS: ENOXAPARIN 30 MG/0.3 ML SYRINGE SUBCUT SCH (09:34)
[2021-04-17] MEDS: FERROUS SULFATE 325 MG TABLET PO SCH (09:36)
[2021-04-17] MEDS: DOCUSATE SODIUM 100 MG CAPSULE PO SCH ×2 (09:36→22:05)
[2021-04-17] MEDS: MULTIVITAMIN (CENTRUM) TABLET PO SCH (09:36)
[2021-04-17] MEDS: PANTOPRAZOLE 40 MG TABLET PO SCH (09:37)
[2021-04-17] MEDS: METOPROLOL TARTRATE 25 MG TABLET PO SCH ×2 (09:37→22:04)
[2021-04-17] MEDS: MEMANTINE 10 MG TABLET PO SCH ×2 (09:37→22:04)
[2021-04-17] MEDS ORDERED: METOPROLOL TARTRATE 5 MG/5 ML VIAL IV ONE (12:30)
[2021-04-17] MEDS ORDERED: ASPIRIN 300 MG SUPP RECTAL ONE (14:30)
[2021-04-17] MEDS ORDERED: METOPROLOL TARTRATE 50 MG TABLET PO SCH (21:00)
[2021-04-17] MEDS: ATORVASTATIN 40 MG TABLET PO SCH (22:04)
[2021-04-18 01:39] LABS: Basophils # 0.1 10*3/uL (0.0-0.2); Basophils % 0.4 % (0.0-0.8); Eosinophils # 0.2 10*3/uL (0.0-0.87); Eosinophils % 1.6 % (0.00-10.9); Hematocrit 33.7 VOL% (35.7-47.0); Immature Granulocytes % 0.7 %; Immature Granulocytes Absolute 0.09 #; Lymphocytes # 0.6 10*3/uL (1.4-4.0); Lymphocytes % 4.9 % (21.3-54.2); Mean Corpuscular HGB Conc 32.6 GM/DL (32-36); Mean Corpuscular Volume 87.5 FL (87-102); Monocytes % 7.2 % (1.7-12.7); Neutrophils % 85.2 % (38.7-73.9); Platelet Count 155 T/CUMM (130-400); Red Blood Count 3.85 MC/CUMM (3.8-5.5); Red Cell Distribution Width 12.6 % (9.3-17.3); White Blood Count 12.2 T/CUMM (4-12)
[2021-04-18 01:52] LABS: Calcium 9.4 MG/DL (8.5-10.1); Osmolality,Calculated 288.4 MOS/KG (273-304); Potassium 3.7 MMOL/L (3.5-5.1)
[2021-04-18] MEDS: ALBUTEROL/IPRATROPIUM 3 ML NEB RESP TX SCH ×4 (01:55→19:15)
[2021-04-18 04:19] LABS: Eosinophils 5 % (0-10); Lymphocytes 3 % (20-55); Segmented Neutrophils 90 % (50-85); Total Cells Counted 100
[2021-04-18 04:20] LABS: Hypochromia 1+; Microcytosis 1+; Platelet Estimate Adequate
[2021-04-18 04:21] LABS: Stomatocytes Slight
[2021-04-18] MEDS: MEMANTINE 10 MG TABLET PO SCH ×2 (09:52→21:24)
[2021-04-18] MEDS: MULTIVITAMIN (CENTRUM) TABLET PO SCH (09:52)
[2021-04-18] MEDS: ASPIRIN EC 81 MG TABLET PO SCH (09:52)
[2021-04-18] MEDS: METOPROLOL TARTRATE 25 MG TABLET PO SCH ×2 (09:52→21:24)
[2021-04-18] MEDS: FERROUS SULFATE 325 MG TABLET PO SCH (09:52)
[2021-04-18] MEDS: PANTOPRAZOLE 40 MG VIAL IV SCH (09:53)
[2021-04-18] MEDS: INSULIN LISPRO 100 UNIT/ML SUBCUT SCH ×4 (09:53→21:24)
[2021-04-18] MEDS: ENOXAPARIN 30 MG/0.3 ML SYRINGE SUBCUT SCH (09:53)
[2021-04-18] MEDS: DOCUSATE SODIUM 100 MG CAPSULE PO SCH ×2 (09:53→20:04)
[2021-04-18] MEDS: SODIUM CHLORIDE 0.9% 1,000 ML IV SCH ×2 (10:24→17:39)
[2021-04-18] MEDS: ATORVASTATIN 40 MG TABLET PO SCH (21:24)
[2021-04-18] MEDS: TRIAMCINOLONE 0.1% CREAM 15 GM TUBE TOP SCH (22:15)
[2021-04-19] MEDS: ALBUTEROL/IPRATROPIUM 3 ML NEB RESP TX SCH ×4 (01:40→20:40)
[2021-04-19 07:16] LABS: Basophils % 0.5 % (0.0-0.8); Eosinophils % 12.6 % (0.00-10.9); Hematocrit 33.3 VOL% (35.7-47.0); Hemoglobin 10.5 GM/DL (12.0-16.0); Immature Granulocytes % 0.6 %; Immature Granulocytes Absolute 0.05 #; Lymphocytes # 0.5 10*3/uL (1.4-4.0); Lymphocytes % 5.9 % (21.3-54.2); Mean Corpuscular HGB Conc 31.5 GM/DL (32-36); Mean Platelet Volume 12.4 FL (9.6-12.0); Monocytes % 7.6 % (1.7-12.7); Neutrophils % 72.8 % (38.7-73.9); Platelet Count 181 T/CUMM (130-400); Red Cell Distribution Width 12.4 % (9.3-17.3); White Blood Count 7.8 T/CUMM (4-12)
[2021-04-19 07:42] LABS: Calcium 8.6 MG/DL (8.5-10.1); Potassium 3.8 MMOL/L (3.5-5.1)
[2021-04-19 07:46] LABS: Anisocytosis 1+; Band Neutrophils 3 % (0-10); Eosinophils 11 % (0-10); Hypochromia Slight; Lymphocytes 7 % (20-55); Platelet Estimate Normal; Segmented Neutrophils 72 % (50-85); Total Cells Counted 100
[2021-04-19 07:47] LABS: Spherocytes Few
[2021-04-19] MEDS: INSULIN LISPRO 100 UNIT/ML SUBCUT SCH ×4 (09:29→22:43)
[2021-04-19] MEDS: METOPROLOL TARTRATE 25 MG TABLET PO SCH ×2 (09:30→21:52)
[2021-04-19] MEDS: DOCUSATE SODIUM 100 MG CAPSULE PO SCH ×2 (09:30→21:52)
[2021-04-19] MEDS: MULTIVITAMIN (CENTRUM) TABLET PO SCH (09:30)
[2021-04-19] MEDS: hydroCHLOROthiazide 12.5 MG CAPSULE PO SCH (09:30)
[2021-04-19] MEDS: FERROUS SULFATE 325 MG TABLET PO SCH (09:30)
[2021-04-19] MEDS: PANTOPRAZOLE 40 MG VIAL IV SCH (09:30)
[2021-04-19] MEDS: ASPIRIN EC 81 MG TABLET PO SCH (09:30)
[2021-04-19] MEDS: TRIAMCINOLONE 0.1% CREAM 15 GM TUBE TOP SCH ×2 (09:30→21:56)
[2021-04-19] MEDS: MEMANTINE 10 MG TABLET PO SCH ×2 (09:30→21:52)
[2021-04-19] MEDS: ENOXAPARIN 30 MG/0.3 ML SYRINGE SUBCUT SCH (09:30)
[2021-04-19] MEDS ORDERED: PHENOL 1.4% THROAT SPRAY 177 ML BOTTLE PO PRN (09:51)
[2021-04-19] MEDS: ATORVASTATIN 40 MG TABLET PO SCH (21:52)
[2021-04-20] MEDS: ALBUTEROL/IPRATROPIUM 3 ML NEB RESP TX SCH ×4 (01:47→20:41)
[2021-04-20 06:38] LABS: Basophils % 0.5 % (0.0-0.8); Eosinophils # 0.7 10*3/uL (0.0-0.87); Eosinophils % 9.1 % (0.00-10.9); Hematocrit 35.2 VOL% (35.7-47.0); Hemoglobin 11.3 GM/DL (12.0-16.0); Immature Granulocytes % 0.4 %; Immature Granulocytes Absolute 0.03 #; Lymphocytes # 0.6 10*3/uL (1.4-4.0); Lymphocytes % 6.9 % (21.3-54.2); Mean Corpuscular HGB Conc 32.1 GM/DL (32-36); Mean Corpuscular Volume 87.6 FL (87-102); Mean Platelet Volume 12.3 FL (9.6-12.0); Monocytes % 9.1 % (1.7-12.7); Platelet Count 219 T/CUMM (130-400); Red Blood Count 4.02 MC/CUMM (3.8-5.5); Red Cell Distribution Width 12.1 % (9.3-17.3); White Blood Count 7.9 T/CUMM (4-12)
[2021-04-20 07:25] LABS: Calcium 9.2 MG/DL (8.5-10.1); Osmolality,Calculated 285.5 MOS/KG (273-304)
[2021-04-20] MEDS: FERROUS SULFATE 325 MG TABLET PO SCH (08:49)
[2021-04-20] MEDS: MULTIVITAMIN (CENTRUM) TABLET PO SCH (08:49)
[2021-04-20] MEDS: ENOXAPARIN 30 MG/0.3 ML SYRINGE SUBCUT SCH (08:49)
[2021-04-20] MEDS: ASPIRIN EC 81 MG TABLET PO SCH (08:49)
[2021-04-20] MEDS: hydroCHLOROthiazide 12.5 MG CAPSULE PO SCH (08:49)
[2021-04-20] MEDS: PANTOPRAZOLE 40 MG VIAL IV SCH (08:49)
[2021-04-20] MEDS: MEMANTINE 10 MG TABLET PO SCH ×2 (08:50→21:37)
[2021-04-20] MEDS: METOPROLOL TARTRATE 25 MG TABLET PO SCH ×2 (08:50→21:36)
[2021-04-20] MEDS: DOCUSATE SODIUM 100 MG CAPSULE PO SCH ×2 (08:50→21:37)
[2021-04-20] MEDS: INSULIN LISPRO 100 UNIT/ML SUBCUT SCH ×4 (08:50→22:19)
[2021-04-20] MEDS: TRIAMCINOLONE 0.1% CREAM 15 GM TUBE TOP SCH ×2 (11:10→21:37)
[2021-04-20] MEDS: ATORVASTATIN 40 MG TABLET PO SCH (21:37)
[2021-04-21] MEDS: ALBUTEROL/IPRATROPIUM 3 ML NEB RESP TX SCH ×2 (00:50→07:09)
[2021-04-21 06:27] VITALS: BP 168/76
[2021-04-21] MEDS: PANTOPRAZOLE 40 MG VIAL IV SCH (08:12)
[2021-04-21] MEDS: ENOXAPARIN 30 MG/0.3 ML SYRINGE SUBCUT SCH (08:12)
[2021-04-21] MEDS: MEMANTINE 10 MG TABLET PO SCH (08:22)
[2021-04-21] MEDS: hydroCHLOROthiazide 12.5 MG CAPSULE PO SCH (08:22)
[2021-04-21] MEDS: METOPROLOL TARTRATE 25 MG TABLET PO SCH (08:22)
[2021-04-21] MEDS: FERROUS SULFATE 325 MG TABLET PO SCH (08:22)
[2021-04-21] MEDS: ASPIRIN EC 81 MG TABLET PO SCH (08:22)
[2021-04-21] MEDS: MULTIVITAMIN (CENTRUM) TABLET PO SCH (08:22)
[2021-04-21] MEDS: TRIAMCINOLONE 0.1% CREAM 15 GM TUBE TOP SCH (08:39)
[2021-04-21] MEDS: INSULIN LISPRO 100 UNIT/ML SUBCUT SCH (08:39)
[2021-04-21] MEDS: DOCUSATE SODIUM 100 MG CAPSULE PO SCH (08:39)
== END 2021-04-21 08:57 | DRG 477 ==
LOC: EDBD → EDUNIT# → N.ED 09:38 → SUATTDRO 11:41 → N.EDINP 11:41 → N.3E 17:32
PROVIDERS: ADMIT Phlebology; ATTEND Internal Medicine